=== PATIENT | female | born 1965 | race Caucasian/White ===

== ENCOUNTER 2020-03-08 09:12 | Outpatient (CLI) | payer BC, SELFPAY ==
--- NOTE | ~2020-03-08 | MM_ITS ---
EXAMINATION: MM screening juanita BI w jerzy HISTORY: Screening mammogram TECHNIQUE: Craniocaudal and mediolateral oblique 3-D tomosynthesis images were obtained and synthetic 2-D images were generated. CAD analysis was submitted and interpreted. COMPARISON: 03/06/2019, 03/02/2018, 03/02/2017 bilateral digital screening mammogram examinations BREAST PARENCHYMAL COMPOSITION: There are scattered areas of fibroglandular density. FINDINGS: Bilateral upper posterior asymmetries on MLO views. Bilateral diagnostic mammography is rec ommended. 5.4 mm circumscribed mass in the posterior mid inner left breast (craniocaudal Tomosynthesis image 45 /87) 5.5 mm circumscribed mass in the upper outer right breast at mid depth (MLO Tomosynthesis image 20/88 ); the appearance is benign, probably an intramammary lymph node given the presence of an apparent sm all fatty hilus. Otherwise there is no evidence of suspicious mass, calcification, or architectural distortion to sug gest malignancy in either breast. There has been no suspicious interval change. IMPRESSION: 1. Bilateral breast masses and asymmetry 2. Recommend bilateral diagnostic mammography and breast ultrasound. BI-RADS Category 0: Incomplete: Needs additional imaging evaluation. Reviewed, dictated and finalized at location A.
== END 2020-03-08 09:13 | disposition home or self-care (01) ==
PROVIDERS: Visit Provider Obstetrics & Gynecology
DX: Z12.31 Encounter for screening mammogram for malignant neoplasm of breast (principal); R92.8 Other abnormal and inconclusive findings on diagnostic imaging of breast
CPT/HCPCS: 77063; 77067

== ENCOUNTER 2020-03-26 14:25 | Outpatient (CLI) | payer BC, SELFPAY ==
--- NOTE | ~2020-03-26 | MMUS_ITS ---
EXAMINATION: MM diagnostic mammo BI, US breast BI complete HISTORY: Bilateral breast masses and asymmetry reported on 03/08/2020 bilateral digital screening mamm ogram TECHNIQUE: Additional 3-D tomosynthesis images of both breasts were performed and synthetic 2-D image s were generated. CAD analysis was submitted and interpreted. High resolution bilateral complete lili st ultrasound was performed. COMPARISON: 03/08/2020 bilateral digital screening mammogram FINDINGS: MAMMOGRAPHIC FINDINGS: Heterogeneous dense stroma is identified. No definite reproducible suspicious mass or architectural d istortion or any malignant calcification, skin thickening or retraction is evident. ULTRASOUND: Right breast: 10:00 3 cm from nipple: Benign-appearing 3.1 x 6.7 mm probable intramammary lymph node Left breast: 10:00 4 cm from nipple: There is an irregular and typed parallel hypoechoic approximately 1.6 x 5.1 x 1.7 mm area with some posterior shadowing. Ultrasound-guided biopsy is recommended. IMPRESSION: 1. Irregular anti-parallel approximately 1.6 x 5.1 x 1.7 mm hypoechoic area with posterior shadowing at left breast 10:00 4 cm from nipple 2. Ultrasound-guided biopsy of left breast 10:00 lesion is recommended BI-RADS category 4, suspicious findings. Reviewed, dictated and finalized at location A. IMPRESSION: 1. Irregular anti-parallel approximately 1.6 x 5.1 x 1.7 mm hypoechoic area wit h posterior shadowing at left breast 10:00 4 cm from nipple 2. Ultrasound-guided biopsy of left breast 10:00 lesion is recommended BI-RADS category 4, suspicious findings.
== END 2020-03-26 14:26 ==
PROVIDERS: PCP Family Medicine; Visit Provider Obstetrics & Gynecology
DX: R92.8 Other abnormal and inconclusive findings on diagnostic imaging of breast (principal)
CPT/HCPCS: 76641; 77066